=== PATIENT | female | born 1965 | race Caucasian/White ===

== ENCOUNTER 2016-09-02 13:05 | Emergency (ER) | payer OTHER ==
[~2016-09-02] VITALS: Ht 157.5 cm; Wt 62.2 kg
[~2016-09-02 13:05] MED LIST: ALPR0.5T99 PO; CYMB60CA PO; LORT5TAB PO; ONDA1TAB16 PO
[2016-09-02 13:18] VITALS: BP 113/69; PULSE 93; RESP 16; TEMP 98.3; O2SAT 99
[2016-09-02] MEDS ORDERED: PROZ40CA PO (13:49)
[2016-09-02] MEDS ORDERED: OCUF0.3D LEFT EYE (13:54)
--- NOTE | 2016-09-02 13:59 | PD ---
HPI Chief Complaint: Eye Problems/Injury Time Seen by Provider: 13:54 Travel History International Travel<30 days: No Contact w/Intl Traveler<30days: No Traveled to known affect area: No History of Present Illness HPI 51-year-old female that presents for evaluation of left eye possible pink eye. Per patient she's had this since today. Per patient she does were contacts but she denies any injury from it or sleeping on them. Per patient she's been having some cough and cold-like symptoms for the past couple of days. 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 She denies anybody in particular having pink eye. She states that the eye feels funny and feels like there is a foreign body. No actual pain. No blurry vision or double vision. Some discharge noted this morning when she woke up she noticed that she had crusting and she could not open her eye. She has been taking anything for this. No allergies to medication. No chest pain or shortness of breath. Denies any other medical complaint at this time. She' s been having cold-like symptoms for the past 2 days. PFS Past Medical History Depression: Yes Diminished Hearing: No Tetanus Vaccination: > 5 Years Influenza Vaccination: Yes ?: Not Tubal Ligation: Yes Past Surgical History Section: Yes Tonsillectomy: Yes Social History Alcohol Use: Yes (SOCIALLY) Tobacco Use: No Substance Use: No Allergies-Medications (Allergen,Severity, Reaction): Coded Allergies: No Known Allergies (Verified , 09/02/16) Reported Meds & Prescriptions Reported Meds & Active Scripts Active Reported Prozac (Fluoxetine HCl) 40 Mg Cap 40 Mg PO DAILY Review of Systems General / Constitutional: No: Fever, Chills, Weight Gain, Weight Loss, Other Eyes: Positive: Drainage, Redness, Foreign Body Sensation, Tearing, No: Diploplia, Blurred Vision, Photophobia, Pain, Blind Spots, Visual changes, Blindness, Other HENT: No: Headaches, Vertigo, Lightheadedness, Sore Throat, Rhinitis, Rhinorrhea, Congestion, Nosebleed, Neck Stiffness, Neck Pain, Masses, Gingival Bleeding, Dental Difficulties, Ear Discharge, Earache, Other Cardiovascular: No: Chest Pain or Discomfort, Palpitations, Irregular Rhythm, Tachycardia, Diaphoresis, Syncope, Dyspnea on exertion, Varicosities, Edema, Cyanosis, Varicosities, Phlebitis, Claudication, Other Respiratory: No: Cough, Shortness of Breath, Wheezing, Sneezing, Orthopnea, Hemoptysis, Stridor, Night Sweats, Pleuritic Pain, Other Gastrointestinal: No: Nausea, Vomiting, Diarrhea, Abdominal Pain, Hematemesis, Hematochezia, Constipation, Changes in Bowel Habits, Indigestion, Dysphagia, Loss of Appetite, Other Genitourinary: No: Urgency, Frequency, Dysuria, Nocturia, Hematuria, Decreased Urinary Output, Oliguria, Hesitancy, Dribbling, Incontinence, Pelvic Pain, Flank Pain, Dyspareunia, Discharge, Dysmenorrhea, Menorrhagia, Metorrhagia, Vaginal Bleeding, Other Musculoskeletal: No: Myalgias, Arthralgias, Limited ROM, Weakness, Cramping, Edema, Pain, Atrophy, Other Skin: No Rash, No Itching, No Dryness, No Lumps, No Hives, No Change in Pigmentation, No Change in nails, No Alopecia, No Lesions, No Breast Lumps, No Breast Tenderness, No Breast Swelling, No Other Neurologic: No: Weakness, Dizziness, Syncope, Focal Abnormalities, Coordination Problem, Tremor, Ataxia, Headache, Change in Mentation, Slurred Speech, Paresthesia, Incontinence, Seizures, Sensory Disturbance, Other Psychiatric: No: Anxiety, Depression, Suicidal Ideations, Disorder of Thought, Mood Disorder, Substance Abuse, Homicidal Ideation, Other Endocrine: No: Heat Intolerance, Cold Intolerance, Polyuria, Polydipsia, Other Hematologic/Lymphatic: No: Easy Bruising, Lymph Node Enlargement, Other Physical Exam Narrative GENERAL: Well-nourished, well-developed patient in no apparent distress. SKIN: Warm and dry. HEAD: Atraumatic. Normocephalic. EYES: Pupils equal and round 4 mm reactive to light and accommodation. No scleral icterus. No injection or drainage. EOM intact bilaterally. Peripheral vision intact bilaterally. Fluorescein stain revealed no sign of corneal abrasion or ulceration. No foreign body noted. Ophthalmic exam reveals some papilledema or vessel disease. Visual acuity within normal limits. ENT: No nasal bleeding or discharge. Mucous membranes pink and moist. TMs are clear with no sign of infection or perforation. No mastoid tenderness. Ear canals are intact bilaterally. No lymphadenopathy. Nostril mucosa is red and moist with clear mucus noted. No sinus tenderness to palpation noted. Tonsils are not enlarged or swollen. No ulvua Deviation. Tongue is midline. NECK: Trachea midline. No JVD. No meningeal signs noted CARDIOVASCULAR: Regular rate and rhythm. RESPIRATORY: No accessory muscle use. Clear to auscultation. Breath sounds equal bilaterally. GASTROINTESTINAL: Abdomen soft, non-tender, nondistended. Hepatic and splenic margins not palpable. MUSCULOSKELETAL: Extremities without clubbing, cyanosis, or edema. No obvious deformities. NEUROLOGICAL: Awake and alert. No obvious cranial nerve deficits. Motor grossly within normal limits. Five out of 5 muscle strength in the arms and legs. Normal speech. PSYCHIATRIC: Appropriate mood and affect; insight and judgment normal. Data Data Last Documented VS Vital Signs Date Time Temp Pulse Resp B/P Pulse Ox O2 Delivery O2 Flow Rate FiO2 09/02/16 13:18 98.3 93 16 113/69 99 MDM Medical Decision Making Medical Screen Exam Complete: Yes Emergency Medical Condition: Yes Medical Record Reviewed: Yes Differential Diagnosis Conjunctivitis versus corneal abrasion versus ulceration Narrative Course 51-year-old female that presents to the ED for evaluation of possible pinkeye. Patient was properly examined and was found to have signs and symptoms very consistent what appears to be viral conjunctivitis. Tachycardia secondary to upper respiratory infection. Patient does were contacts. I do not see any sign of ulceration or abrasion at this time but I will start patient on ofloxacin drops to cover for any infection from wearing contacts. I recommend OTC medicines as needed. Follow with PCP. See ED worsening symptoms. She is agreeable with plan Diagnosis Primary Impression: Conjunctivitis Qualified Code: B30.9 - Acute viral conjunctivitis of left eye Patient Instructions: General Instructions Additional Instructions: Motrin and Tylenol for pain and fever. You can use [id number] antihistamine as well as well as Mucinex as needed for runny nose and congestion. Cough drops for cough as needed. Drink plenty of fluids. Follow-up with PCP. See ED for worsening symptoms. Med/Other Pt SpecificInfo: Prescription(s) given Scripts Ofloxacin Opth Drops (Ocuflox Opth Drops)0.3 % Drops1 Drop LEFT EYE Q6HR #1 BOTTLE Ref 0 Prov:Adis Rowell MD 09/02/16 Disposition: 01 DISCHARGE HOME Condition: Stable Luan Sol Sep 02, 2016 13:59
[2016-11-27] MEDS ORDERED: CELE20TA PO (11:39)
[2016-11-27] MEDS ORDERED: PANT20TA2 PO (11:39)
== END 2016-09-02 14:05 | disposition home or self-care (01) ==
LOC: PHED 13:05 → PHEFT 14:05
DX: B30.9 Viral conjunctivitis, unspecified (principal); J06.9 Acute upper respiratory infection, unspecified; R00.0 Tachycardia, unspecified; R05 Cough
CPT/HCPCS: 99283